=== PATIENT | female | born 1995 | race Hispanic/Latino ===

== ENCOUNTER 2023-12-23 10:02 | Emergency (ER) | payer BC ==
[~2023-12-23] VITALS: Ht 162.6 cm; Wt 114.6 kg
[2023-12-23] MEDS ORDERED: MYDAYIS ER 3737.5 MG (10:16)
[2023-12-23 11:03] VITALS: PULSE 83; RESP 16; TEMP 97.9; O2SAT 95
== END 2023-12-23 11:07 | disposition home or self-care (01) ==
LOC: FSED 10:15
DX: R20.0 Anesthesia of skin (principal); G56.22 Lesion of ulnar nerve, left upper limb; F90.9 Attention-deficit hyperactivity disorder, unspecified type; F17.210 Nicotine dependence, cigarettes, uncomplicated
CPT/HCPCS: 99282